=== PATIENT | male | born 1950 | race Caucasian/White ===

== ENCOUNTER 2017-03-11 23:10 | Emergency (ER) | payer MEDICARE, OTHER ==
[~2017-03-11] VITALS: Ht 182.9 cm; Wt 90.9 kg
[2017-03-12] MEDS ORDERED: LORazepam 2 MG TABLET PO ONE
[2017-03-12 00:43] VITALS: BP 154/87
== END 2017-03-12 00:47 | disposition home or self-care (01) ==
LOC: EMS 23:13
DX: F41.9 Anxiety disorder, unspecified (principal)
CPT/HCPCS: 99283